=== PATIENT | female | born 1975 | race Caucasian/White ===

== ENCOUNTER 2021-08-13 13:23 | Day surgery (SDC) | payer BC | END 2021-08-13 14:30 | disposition home or self-care (01) | LOC: CSHSDC/OP 13:23 | PROVIDERS: ATTEND Physician Assistant | DX: Z23 Encounter for immunization (principal); U07.1 COVID-19 | CPT/HCPCS: 96365; J3490; M0243; Q0244 ==

== ENCOUNTER 2022-12-18 14:43 | Outpatient (CLI) | payer BC | END 2022-12-18 14:44 | disposition home or self-care (01) | LOC: CSHMAMMO 14:43 | PROVIDERS: ATTEND Nurse Practitioner Family | DX: Z12.31 Encounter for screening mammogram for malignant neoplasm of breast (principal) | CPT/HCPCS: 77063; 77067 ==